=== PATIENT | female | born 1980 | race Caucasian/White ===

== ENCOUNTER 2016-05-23 06:58 | Inpatient (IN) | payer BC ==
[2016-05-23] MEDS ORDERED: HYDROmorphone 1 MG/ML 1 ML SYRINGE IVP STA ×3 (07:37→11:34)
[2016-05-23] MEDS ORDERED: SODIUM CHLORIDE 0.9% 1,000 ML IV STA ×3 (07:38→14:13)
--- NOTE | 2016-05-23 07:41 | ED ---
Abdominal Pain HPI - General Chief Complaint: Abdominal Pain Stated Complaint: vomiting, blood in stool Time Seen by Provider: 05/23/16 07:10 Source: patient, RN notes reviewed Mode of arrival: ambulatory Limitations: no limitations - History of Present Illness Initial Comments: This 36-year-old female with a history of she had bleeding the past with a small bowel resection as well as an appendectomy also history of pancreatitis who states she had the onset after eating dinner last night of abdominal pain. She states she's had nausea vomiting 5 she's had abdominal pain feels similar to her IBS. She also states over she's had the urgent feeling of need to have a bowel movement but she had just small amounts last couple times she had dark red blood clots. While at rest the pain is not very severe but does come in waves. Initial exam she did not require any pain medication bed by the in the exam she was in severe pain. Her last muscle. Ended about a week ago. MD Complaint: abdominal pain - Related Data Home Medications Medication Instructions Recorded Confirmed Multivitamins, Thera [Multivitamin] 1 tab PO DAILY 05/23/16 05/23/16 Allergies Allergy/AdvReac Type Severity Reaction Status Date / Time Penicillins Allergy Rash/Hives Verified 05/23/16 08:23 Review of Systems ROS Statement: Those systems with pertinent positive or pertinent negative responses have been documented in the HPI. ROS Other: All systems not noted in ROS Statement are negative. 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, multiple right knee surgeries Past Anesthesia/Blood Transfusion Reactions: No Reported Reaction Past Psychological History: No Psychological Hx Reported Smoking Status: Never smoker Past Alcohol Use History: None Reported Past Drug Use History: None Reported - Past Family History Father Family Medical History: No Reported History General Exam - General Exam Comments Initial Comments: Is a well-developed well-nourished awake alert oriented x3 female Limitations: no limitations General appearance: alert, anxious Head exam: Present: atraumatic, normocephalic, normal inspection Eye exam: Present: normal appearance, PERRL, EOMI. Absent: scleral icterus, conjunctival injection, periorbital swelling ENT exam: Present: mucous membranes dry Neck exam: Present: normal inspection. Absent: tenderness, meningismus, lymphadenopathy Respiratory exam: Present: normal lung sounds bilaterally. Absent: respiratory distress, wheezes, rales, rhonchi, stridor Cardiovascular Exam: Present: regular rate, normal rhythm, normal heart sounds. Absent: systolic murmur, diastolic murmur, rubs, gallop, clicks GI/Abdominal exam: Present: soft, tenderness (Tender lower quadrant right and left palpation no guarding), hyperactive bowel sounds. Absent: distended, guarding, rebound, rigid Rectal exam: Present: normal inspection, heme (+) stool, other (Dark red bloody residue noted) Extremities exam: Present: normal inspection, full ROM, normal capillary refill. Absent: tenderness, pedal edema, joint swelling, calf tenderness Back exam: Present: normal inspection Neurological exam: Present: alert, oriented X3, CN II-XII intact Psychiatric exam: Present: normal affect, normal mood Skin exam: Present: warm, dry, intact, normal color. Absent: rash Course Vital Signs 05/23/16 05/23/16 05/23/16 07:06 09:01 12:07 Temperature 97.8 F 98.2 F Pulse Rate 77 54 L 94 Respiratory 18 17 16 Rate Blood Pressure 130/58 133/71 116/65 O2 Sat by Pulse 98 100 100 Oximetry 05/23/16 13:12 Temperature 98.0 F Pulse Rate 100 Respiratory 20 Rate Blood Pressure 112/61 O2 Sat by Pulse 100 Oximetry Medical Decision Making - Medical Decision Making I did discuss findings with the patient family patient does still have abdominal pain and some nausea she will be admitted I did discuss the case with the hospitalist. The patient is seen Dr. Gary Frazier before will be consulted. - Lab Data Result diagrams: 05/23/16 07:25 05/23/16 07:25 Lab Results 05/23/16 05/23/16 05/23/16 Range/Units 07:25 07:25 07:25 WBC 14.4 H (3.8-10.6) k/uL RBC 4.75 (3.80-5.40) m/uL Hgb 13.7 (11.4-16.0) gm/dL Hct 41.3 (34.0-46.0) % MCV 87.0 (80.0-100.0) fL MCH 29.0 (25.0-35.0) pg MCHC 33.3 (31.0-37.0) g/dL RDW 12.6 (11.5-15.5) % Plt Count 195 (150-450) k/uL Neutrophils % 84 % Lymphocytes % 8 % Monocytes % 6 % Eosinophils % 1 % Basophils % 0 % Neutrophils # 12.1 H (1.3-7.7) k/uL Lymphocytes # 1.1 (1.0-4.8) k/uL Monocytes # 0.9 (0-1.0) k/uL Eosinophils # 0.1 (0-0.7) k/uL Basophils # 0.0 (0-0.2) k/uL PT 10.9 (9.0-12.0) sec INR 1.1 (<1.1) APTT 24.6 (22.0-30.0) sec Sodium 141 (137-145) mmol/L Potassium 4.2 (3.5-5.1) mmol/L Chloride 104 (98-107) mmol/L Carbon Dioxide 26 (22-30) mmol/L Anion Gap 11 mmol/L BUN 13 (7-17) mg/dL Creatinine 0.61 (0.52-1.04) mg/dL Est GFR (MDRD) Af Amer >60 (>60 ml/min/1.73 sqM) Est GFR (MDRD) Non-Af >60 (>60 ml/min/1.73 sqM) Glucose 114 H (74-99) mg/dL Calcium 8.9 (8.4-10.2) mg/dL Magnesium 1.8 (1.6-2.3) mg/dL Total Bilirubin 1.0 (0.2-1.3) mg/dL AST 21 (14-36) U/L ALT 26 (9-52) U/L Alkaline Phosphatase 61 (38-126) U/L Total Protein 6.3 (6.3-8.2) g/dL Albumin 3.7 (3.5-5.0) g/dL Amylase 52 (30-110) U/L Lipase 49 (23-300) U/L Urine Color Urine Appearance (Clear) Urine pH (5.0-8.0) Ur Specific Ucon (1.001-1.035) Urine Protein (Negative) Urine Glucose (UA) (Negative) Urine Ketones (Negative) Urine Blood (Negative) Urine Nitrate (Negative) Urine Bilirubin (Negative) Urine Urobilinogen (<2.0) mg/dL Ur Leukocyte Esterase (Negative) Urine RBC (0-5) /hpf Urine WBC (0-5) /hpf Ur Squamous Epith Cells (0-4) /hpf Urine Mucus (None) /hpf Urine HCG, Qual (Not Detectd) Stool Occult Blood (Negative) Blood Type Blood Type Recheck Antibody Screen Spec Expiration Date 05/23/16 05/23/16 05/23/16 Range/Units 07:25 08:00 08:30 WBC (3.8-10.6) k/uL RBC (3.80-5.40) m/uL Hgb (11.4-16.0) gm/dL Hct (34.0-46.0) % MCV (80.0-100.0) fL MCH (25.0-35.0) pg MCHC (31.0-37.0) g/dL RDW (11.5-15.5) % Plt Count (150-450) k/uL Neutrophils % % Lymphocytes % % Monocytes % % Eosinophils % % Basophils % % Neutrophils # (1.3-7.7) k/uL Lymphocytes # (1.0-4.8) k/uL Monocytes # (0-1.0) k/uL Eosinophils # (0-0.7) k/uL Basophils # (0-0.2) k/uL PT (9.0-12.0) sec INR (<1.1) APTT (22.0-30.0) sec Sodium (137-145) mmol/L Potassium (3.5-5.1) mmol/L Chloride (98-107) mmol/L Carbon Dioxide (22-30) mmol/L Anion Gap mmol/L BUN (7-17) mg/dL Creatinine (0.52-1.04) mg/dL Est GFR (MDRD) Af Amer (>60 ml/min/1.73 sqM) Est GFR (MDRD) Non-Af (>60 ml/min/1.73 sqM) Glucose (74-99) mg/dL Calcium (8.4-10.2) mg/dL Magnesium (1.6-2.3) mg/dL Total Bilirubin (0.2-1.3) mg/dL AST (14-36) U/L ALT (9-52) U/L Alkaline Phosphatase (38-126) U/L Total Protein (6.3-8.2) g/dL Albumin (3.5-5.0) g/dL Amylase (30-110) U/L Lipase (23-300) U/L Urine Color Urine Appearance (Clear) Urine pH (5.0-8.0) Ur Specific Ucon (1.001-1.035) Urine Protein (Negative) Urine Glucose (UA) (Negative) Urine Ketones (Negative) Urine Blood (Negative) Urine Nitrate (Negative) Urine Bilirubin (Negative) Urine Urobilinogen (<2.0) mg/dL Ur Leukocyte Esterase (Negative) Urine RBC (0-5) /hpf Urine WBC (0-5) /hpf Ur Squamous Epith Cells (0-4) /hpf Urine Mucus (None) /hpf Urine HCG, Qual Not Detected (Not Detectd) Stool Occult Blood Positive H (Negative) Blood Type O Negative Blood Type Recheck No Antibody Screen NEGATIVE Spec Expiration Date 05/26/2016 - 229905/23/16 Range/Units 08:30 WBC (3.8-10.6) k/uL RBC (3.80-5.40) m/uL Hgb (11.4-16.0) gm/dL Hct (34.0-46.0) % MCV (80.0-100.0) fL MCH (25.0-35.0) pg MCHC (31.0-37.0) g/dL RDW (11.5-15.5) % Plt Count (150-450) k/uL Neutrophils % % Lymphocytes % % Monocytes % % Eosinophils % % Basophils % % Neutrophils # (1.3-7.7) k/uL Lymphocytes # (1.0-4.8) k/uL Monocytes # (0-1.0) k/uL Eosinophils # (0-0.7) k/uL Basophils # (0-0.2) k/uL PT (9.0-12.0) sec INR (<1.1) APTT (22.0-30.0) sec Sodium (137-145) mmol/L Potassium (3.5-5.1) mmol/L Chloride (98-107) mmol/L Carbon Dioxide (22-30) mmol/L Anion Gap mmol/L BUN (7-17) mg/dL Creatinine (0.52-1.04) mg/dL Est GFR (MDRD) Af Amer (>60 ml/min/1.73 sqM) Est GFR (MDRD) Non-Af (>60 ml/min/1.73 sqM) Glucose (74-99) mg/dL Calcium (8.4-10.2) mg/dL Magnesium (1.6-2.3) mg/dL Total Bilirubin (0.2-1.3) mg/dL AST (14-36) U/L ALT (9-52) U/L Alkaline Phosphatase (38-126) U/L Total Protein (6.3-8.2) g/dL Albumin (3.5-5.0) g/dL Amylase (30-110) U/L Lipase (23-300) U/L Urine Color Yellow Urine Appearance Clear (Clear) Urine pH 6.0 (5.0-8.0) Ur Specific Ucon 1.013 (1.001-1.035) Urine Protein Negative (Negative) Urine Glucose (UA) Negative (Negative) Urine Ketones 2+ H (Negative) Urine Blood Negative (Negative) Urine Nitrate Negative (Negative) Urine Bilirubin Negative (Negative) Urine Urobilinogen <2.0 (<2.0) mg/dL Ur Leukocyte Esterase Trace H (Negative) Urine RBC 2 (0-5) /hpf Urine WBC 2 (0-5) /hpf Ur Squamous Epith Cells 1 (0-4) /hpf Urine Mucus Rare H (None) /hpf Urine HCG, Qual (Not Detectd) Stool Occult Blood (Negative) Blood Type Blood Type Recheck Antibody Screen Spec Expiration Date - Radiology Data Radiology results: report reviewed (I did review the imaging reports patient does have evidence of colitis.), image reviewed Disposition Clinical Impression: Colitis, acute, Abdominal pain, Rectal bleeding Disposition: ADMITTED IP TO THIS [facility] Condition: Stable
[2016-05-23] MEDS: ONDANSETRON 4 MG/2 ML VIAL IVP STA ×2 (07:44→11:12)
[2016-05-23 07:47] LABS: Basophils % (A) 0 %; CH 29.2; CHCM 33.7; Eosinophils # (A) 0.1 k/uL (0-0.7); Eosinophils % (A) 1 %; HCT 41.3 % (34.0-46.0); HDW 2.19; HGB 13.7 gm/dL (11.4-16.0); Luc # (Auto) 0.13; Luc % (Auto) 1; Lymphocytes # (A) 1.1 k/uL (1.0-4.8); Lymphocytes % (A) 8 %; MCHC 33.3 g/dL (31.0-37.0); Mean Platelet Volume 8.5; Monocytes # (A) 0.9 k/uL (0-1.0); Monocytes % (A) 6 %; Neutrophils # (A) 12.1 k/uL (1.3-7.7); Neutrophils % (A) 84 %; RBC 4.75 m/uL (3.80-5.40); RDW 12.6 % (11.5-15.5); WBC 14.4 k/uL (3.8-10.6); WBC (Perox) 14.52
[2016-05-23 07:54] LABS: INR 1.1 (<1.1); Partial Thromboplastin Time 24.6 sec (22.0-30.0); Prothrombin Time 10.9 sec (9.0-12.0)
[2016-05-23 08:01] LABS: ALT 26 U/L (9-52); AST 21 U/L (14-36); Alkaline Phosphatase 61 U/L (38-126); Amylase 52 U/L (30-110); Anion Gap 11 mmol/L; Blood Urea Nitrogen 13 mg/dL (7-17); Calcium 8.9 mg/dL (8.4-10.2); Carbon Dioxide 26 mmol/L (22-30); Chloride 104 mmol/L (98-107); Glucose 114 mg/dL (74-99); Magnesium 1.8 mg/dL (1.6-2.3); Non-African American GFR(MDRD) >60 (>60 ml/min/1.73 sqM); Potassium 4.2 mmol/L (3.5-5.1); Sodium 141 mmol/L (137-145); Total Protein 6.3 g/dL (6.3-8.2)
[2016-05-23 08:42] LABS: Appearance,Urine Clear (Clear); Bilirubin,Urine Negative (Negative); Glucose,Urine (UA) Negative (Negative); Ketones,Urine 2+ (Negative); Leukocyte Esterase,Urine Trace (Negative); Mucus,Urine Rare /hpf; Nitrite,Urine Negative (Negative); Particle Count 1926; Protein,Urine Negative (Negative); RBC,Urine 2 /hpf (0-5); Specific Gravity,Urine 1.013 (1.001-1.035); Squamous Epithelial Cell,Urine 1 /hpf (0-4); UA Billing (MACRO vs. MICRO) MICRO; Urobilinogen,Urine <2.0 mg/dL (<2.0); WBC,Urine 2 /hpf (0-5)
--- NOTE | 2016-05-23 08:58 | XR ---
EXAMINATION TYPE: XR KUB DATE OF EXAM: 05/23/2016 8:52 AM COMPARISON: NONE INDICATION: Abdominal pain nausea and vomiting TECHNIQUE: Single view abdomen upright view FINDINGS: There is a normal bowel gas pattern. Psoas margins are normal. No organomegaly is present. IMPRESSION: 1. Unremarkable Abdomen
[2016-05-23] MEDS ORDERED: RX INFO: IV CONTRAST WAS GIVEN 1 EACH MISC MISCELLANE PRN (09:08)
[2016-05-23] MEDS ORDERED: IOHEXOL 350 MG/ML 25 ML BOTTLE (ORAL USE) PO PRN (09:08)
--- NOTE | 2016-05-23 12:26 | CT ---
EXAMINATION TYPE: CT abdomen pelvis w con DATE OF EXAM: 05/23/2016 12:14 PM REFERENCE: Previous study dated 12/23/2011. HISTORY: Pain HISTORY: Pelvic pain and bloody stools CT DLP: 1579.6 mGy Automated exposure control for dose reduction was used. TECHNIQUE: Helical acquisition through the abdomen and pelvis was obtained following the oral ingesti on of with Oral Contrast and following intravenous administration of 100 mL of Omnipaque 300. The pawel a was reformatted in axial, coronal and sagittal projections. FINDINGS: There is minimal dependent atelectasis within the lungs. There is no pleural or pericardia l fluid. The heart is normal in size. There is a tiny hiatal hernia present. Within the abdomen, the liver is prominent measuring 19 cm. Most of this is due to a prominent Parisa 's lobe. The spleen and gallbladder are normal. Both adrenal glands are normal. Both kidneys demonstrate function and appear morphologically normal. The pancreas is unremarkable. There is no significant retroperitoneal, iliac or inguinal adenopathy. The uterus and ovaries appear normal. The bladder is distended. There is mucosal thickening involving the descending colon. The appendix is not visualized with certa inty. Small bowel loops are normal. No free fluid and no free air is seen. No osseous lesion is seen. IMPRESSION: 1. THICKENING OF THE DESCENDING COLON. PLEASE CORRELATE FOR COLITIS. 2. SMALL HIATAL HERNIA.
[2016-05-23] MEDS ORDERED: NALOXONE 0.4 MG/ML 1 ML VIAL IV PRN (14:01)
[2016-05-23] MEDS ORDERED: ONDANSETRON 4 MG/2 ML VIAL IVP PRN ×2 (14:01→17:38)
[2016-05-23] MEDS: HYDROmorphone 1 MG/ML 1 ML SYRINGE IV PRN (15:14)
[2016-05-23] MEDS: SODIUM CHLORIDE 0.9% 1,000 ML IV SCH ×2 (15:18→22:49)
--- NOTE | 2016-05-23 17:53 | P.GSCN ---
History of Present Illness Consult date: 05/23/16 Reason for Consult: Abdominal pain and rectal bleeding Requesting physician: [place] History of present illness: 36 years old female presents with diffuse crampy lower abdominal pain of one- day duration. Pain started after her dinner last night. She had a bloody bowel movement containing dark blood and blood clots. She had 2 further bowel movements this morning containing blood clots. Abdominal pain is subsiding. She also had multiple episodes of nausea and vomiting containing food particles. No fever, chills or rigors. History of irritable bowel syndrome. Patient also had small bowel resection in [address] Gary Frazier. This was an emergency surgery and as per patient" had abnormal blood vessel in the small bowel". She also had follow-up colonoscopy [place] [address] Adrian. No further episodes of GI bleed in the interim. She also had an episode of pancreatitis in the past. She drinks alcohol on social occasions. Review of Systems Constitutional: Denies fever, weight loss or loss of appetite HEENT: No difficulty in vision or hearing. Denies dysphagia. Cardiovascular: Denies chest pain, palpitations, dizziness, shortness of breath. Respiratory: Recent upper respiratory tract infection with dry cough. Long- standing asthma well controlled with rescue inhalers. Integumentary: No ulcers or rashes Genitourinary: No urinary incontinence, hematuria or dysuria Neurologic: No seizures, denies weakness in upper or lower extremities Musculoskeletal: Occasional left knee pain. 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, multiple right knee surgeries Past Anesthesia/Blood Transfusion Reactions: Postoperative Nausea & Vomiting ( PONV) Additional Past Anesthesia/Blood Transfusion Reaction / Comm: PAST BLOOD TRANSFUSION- NO REACTION Past Psychological History: No Psychological Hx Reported Smoking Status: Never smoker Past Alcohol Use History: Occasional Past Drug Use History: None Reported - Past Family History Mother Family Medical History: No Reported History Additional Family Medical History / Comment(s): HEALTHY Father Family Medical History: No Reported History Additional Family Medical History / Comment(s): HEALTHY Medications and Allergies Home Medications Medication Instructions Recorded Confirmed Type Multivitamins, Thera [Multivitamin] 1 tab PO DAILY 05/23/16 05/23/16 History Allergies Allergy/AdvReac Type Severity Reaction Status Date / Time Penicillins Allergy Rash/Hives Verified 05/23/16 08:23 Surgical - Exam Vital Signs Temp Pulse Resp BP Pulse Ox 97.8 F 77 18 130/58 98 05/23/16 07:06 05/23/16 07:06 05/23/16 07:06 05/23/16 07:06 05/23/16 07:06 General: Patient is alert and oriented to time, place and person and cooperative with exam. HEENT: No pallor, no icteru Chest: Bilateral equal breath sounds present. No wheezes, no crackles. Cardiovascular: Regular rate and rhythm. Abdomen: Soft, nontender, nondistended. No peritonitis Integumentary: No active ulcers or discharge. Neurologic: Cranial nerves II-XII intact. Strength upper and lower extremities 5/5. No focal neurologic deficits. Gait is normal. Psychiatric: No anxiety or psychosis. No suicidal thoughts. Results - Labs 05/23/16 07:25 05/23/16 07:25 - Imaging CT scan - abdomen: image reviewed (CT of the abdomen and pelvis reviewed. No contrast in the descending and sigmoid colon making visualization of the wall difficulty. No surrounding fat stranding. No free intra-abdominal air) Assessment and Plan (1) Abdominal pain Status: Acute (2) Rectal bleeding Status: Acute Plan: 1. 36 years old female with acute onset of abdominal pain, vomiting and bloody bowel movements. 2. Leukocytosis at presentation. Hemoglobin normal. Recheck hemoglobin and lactate level stat. Repeat in a.m. 3. Unclear about the source of bleeding at this time. Differential diagnosis included infectious colitis, bleeding from AV malformation, inflammatory bowel disease. 4. Keep nothing by mouth except for ice chips and popsicles. IV hydration. 5. Recommend GI consult 6. If acute drop in hemoglobin, recommend CT angiogram or regular angiogram with possible angioembolization. 7. Patient examined. 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
[2016-05-23] MEDS: METOCLOPRAMIDE 5 MG/ML 2 ML VIAL IVP SCH (18:14)
--- NOTE | 2016-05-23 18:38 | HP ---
DATE OF ADMISSION: 05/23/2016 Patient is a 36-year-old female, very pleasant female who started having multiple episodes of diarrhea yesterday and she had 3 episodes of blood in the stools and patient had similar blood in the stools in the past. 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 Byrnes did a small part of the small bowel resection. Patient denied any fevers. Patient was vomiting as well. Patient had a bit of flulike symptoms as well. Patient's son did have similar symptoms of nausea and vomiting about a few days ago. Patient denied any fever, chills. Patient had 3 stools today morning. Stool studies were ordered from ER. CT of the abdomen was read as colitis in the descending colon, although Dr. Byrnes reviewed the CT and the colitis was not that impressive. As of now, patient will be on IV fluids. We will watch her for more gastrointestinal bleed or any more diarrhea. REVIEW OF SYSTEMS: CONSTITUTIONAL: No fever, no malaise, no fatigue. HEENT: No recent visual problems or hearing problems. Denied any sore throat. CARDIOVASCULAR: No chest pain, orthopnea, PND, no palpitations, no syncope. PULMONARY: No shortness of breath, no cough, no hemoptysis. GASTROINTESTINAL: As described in HPI. Patient had lower crampy abdominal pain as well about 6/10 in severity, which improved at this point of time. NEUROLOGICAL: No headaches, no weakness, no numbness. HEMATOLOGICAL: Denies any bleeding or petechiae. GENITOURINARY: Denies any burning micturition, frequency, or urgency. MUSCULOSKELETAL/RHEUMATOLOGICAL: Denies any joint pain, swelling, or any muscle pain. ENDOCRINE: Denies any polyuria or polydipsia. The rest of the 14 point review of systems is negative. Medications were reviewed. PHYSICAL EXAMINATION: VITAL SIGNS: Temperature 97.9, Pulse of 57, respiratory rate of 16, blood pressure is 119/60, saturating at 98% on room air. GENERAL: The patient is alert and oriented x3, not in any acute distress. Well developed, well nourished. HEENT: Pupils are round and equally reacting to light. EOMI. No scleral icterus. No conjunctival pallor. Normocephalic, atraumatic. No pharyngeal erythema. No thyromegaly. CARDIOVASCULAR: S1 and S2 present. No murmurs, rubs, or gallops. PULMONARY: Chest is clear to auscultation, no wheezing or crackles. ABDOMEN: Very minimal left lower quadrant tenderness was appreciated. No rebound or rigidity. Bowel sounds are present. MUSCULOSKELETAL: No joint swelling or deformity. EXTREMITIES: No cyanosis, clubbing, or pedal edema. NEUROLOGICAL: Gross neurological examination did not reveal any focal deficits. SKIN: No rashes. LABORATORY DATA: CBC and abnormal for elevated WBC count of 114,000. ASSESSMENT AND PLAN: 1. Diarrhea appears to have viral diarrhea except for gastrointestinal bleed, which I cannot explain. We will monitor her today. If continues to have gastrointestinal bleed, patient will need a CT angiography of the abdomen as per the recommendations from as Dr. Giron to rule out any ischemic causes. 2. Leukocytosis as a reactive response to diarrhea, most probably viral diarrhea. The patient denied using any antibiotics recently. Primary care physician is Dr. Melanie Kaur.
[2016-05-23 19:13] LABS: Basophils # (A) 0.1 k/uL (0-0.2); Basophils % (A) 1 %; CH 29.3; CHCM 32.4; Eosinophils # (A) 0.1 k/uL (0-0.7); Eosinophils % (A) 1 %; HCT 38.7 % (34.0-46.0); HGB 12.1 gm/dL (11.4-16.0); Luc # (Auto) 0.17; Luc % (Auto) 2; Lymphocytes # (A) 1.6 k/uL (1.0-4.8); Lymphocytes % (A) 13 %; MCH 28.4 pg (25.0-35.0); MCHC 31.3 g/dL (31.0-37.0); MCV 90.8 fL (80.0-100.0); Mean Platelet Volume 8.8; Monocytes # (A) 0.7 k/uL (0-1.0); Monocytes % (A) 6 %; Neutrophils # (A) 9.1 k/uL (1.3-7.7); Neutrophils % (A) 78 %; RBC 4.26 m/uL (3.80-5.40); RDW 12.7 % (11.5-15.5); WBC 11.7 k/uL (3.8-10.6); WBC (Perox) 11.43
[2016-05-23 20:05] LABS: Erythrocyte Sedimentation Rate 2 mm/hr (0-20)
[2016-05-23] MEDS: PANTOPRAZOLE 40 MG/10 ML VIAL IV SCH (21:49)
[2016-05-24] MEDS: METOCLOPRAMIDE 5 MG/ML 2 ML VIAL IVP SCH ×4 (00:28→18:29)
[2016-05-24 06:54] LABS: Basophils % (A) 0 %; CH 28.8; CHCM 32.2; Eosinophils % (A) 0 %; HCT 37.4 % (34.0-46.0); HDW 2.16; HGB 12.3 gm/dL (11.4-16.0); Luc % (Auto) 2; Lymphocytes # (A) 1.3 k/uL (1.0-4.8); Lymphocytes % (A) 13 %; MCH 29.7 pg (25.0-35.0); MCV 89.8 fL (80.0-100.0); Mean Platelet Volume 7.8; Monocytes # (A) 0.5 k/uL (0-1.0); Monocytes % (A) 5 %; Neutrophils # (A) 7.8 k/uL (1.3-7.7); Neutrophils % (A) 79 %; RBC 4.16 m/uL (3.80-5.40); RDW 12.7 % (11.5-15.5); WBC 9.8 k/uL (3.8-10.6); WBC (Perox) 10.33
[2016-05-24] MEDS: HYDROmorphone 1 MG/ML 1 ML SYRINGE IV PRN ×2 (07:39→13:43)
[2016-05-24 07:42] LABS: ALT 30 U/L (9-52); AST 13 U/L (14-36); Alkaline Phosphatase 49 U/L (38-126); Anion Gap 9 mmol/L; Blood Urea Nitrogen 6 mg/dL (7-17); Calcium 7.8 mg/dL (8.4-10.2); Carbon Dioxide 23 mmol/L (22-30); Chloride 108 mmol/L (98-107); Glucose 85 mg/dL (74-99); Non-African American GFR(MDRD) >60 (>60 ml/min/1.73 sqM); Potassium 3.9 mmol/L (3.5-5.1); Sodium 140 mmol/L (137-145); Total Bilirubin 0.7 mg/dL (0.2-1.3); Total Protein 5.3 g/dL (6.3-8.2)
[2016-05-24] MEDS: PANTOPRAZOLE 40 MG/10 ML VIAL IV SCH ×2 (09:07→21:09)
[2016-05-24] MEDS: SODIUM CHLORIDE 0.9% 1,000 ML IV SCH (09:35)
[2016-05-24] MEDS: LACTATED RINGERS 1,000 ML IV SCH ×2 (09:37→21:11)
--- NOTE | 2016-05-24 10:07 | P.PN ---
Subjective 36 years old female presents with diffuse crampy lower abdominal pain of one- day duration. She had a bloody bowel movement containing dark blood and blood clots. She had 2 further bowel movements this morning containing blood clots. Abdominal pain is subsiding. She also had multiple episodes of nausea and vomiting containing food particles. No fever, chills or rigors. History of irritable bowel syndrome. Patient also had small bowel resection in [address] Gary Frazier. This was an emergency surgery and as per patient" had abnormal blood vessel in the small bowel". She also had follow-up colonoscopy [place] [address] Adrian. No further episodes of GI bleed in the interim. She also had an episode of pancreatitis in the past. She drinks alcohol on social occasions. Patient reports no abdominal pain today. Small bowel movements having blood clots. Review of Systems Constitutional: Denies fever, weight loss or loss of appetite HEENT: No difficulty in vision or hearing. Denies dysphagia. Cardiovascular: Denies chest pain, palpitations, dizziness, shortness of breath. Respiratory: Recent upper respiratory tract infection with dry cough. Long- standing asthma well controlled with rescue inhalers. Integumentary: No ulcers or rashes Genitourinary: No urinary incontinence, hematuria or dysuria Neurologic: No seizures, denies weakness in upper or lower extremities Musculoskeletal: Occasional left knee pain. 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, multiple right knee surgeries Past Anesthesia/Blood Transfusion Reactions: Postoperative Nausea & Vomiting ( PONV) Additional Past Anesthesia/Blood Transfusion Reaction / Comm: PAST BLOOD TRANSFUSION- NO REACTION Past Psychological History: No Psychological Hx Reported Smoking Status: Never smoker Past Alcohol Use History: Occasional Past Drug Use History: None Reported - Past Family History Mother Family Medical History: No Reported History Additional Family Medical History / Comment(s): HEALTHY Father Family Medical History: No Reported History Additional Family Medical History / Comment(s): HEALTHY Medications and Allergies Home Medications Medication Instructions Recorded Confirmed Type Multivitamins, Thera [Multivitamin] 1 tab PO DAILY 05/23/16 05/23/16 History Allergies Allergy/AdvReac Type Severity Reaction Status Date / Time Penicillins Allergy Rash/Hives Verified 05/23/16 08:23 Objective - Vital Signs Vital signs: Vital Signs Temp 97.1 F L 05/24/16 07:00 Pulse 73 05/24/16 07:00 Resp 16 05/24/16 07:00 BP 137/64 05/24/16 07:00 Pulse Ox 99 05/24/16 07:00 Intake & Output 05/23/16 05/24/16 05/24/16 18:59 06:59 18:59 Intake Total 375 Balance 375 Intake: Intake, IV Titration 375 Amount Sodium Chloride 0.9% 1, 375 000 ml @ 125 mls/hr IV . Q8H [facility] Rx#:[id number] Oral 0 Other: Voiding Method Toilet # Voids 2 - Exam General: Patient is alert and oriented to time, place and person and cooperative with exam. HEENT: No pallor, no icteru Chest: Bilateral equal breath sounds present. No wheezes, no crackles. Cardiovascular: Regular rate and rhythm. Abdomen: Soft, nontender, nondistended. No peritonitis Integumentary: No active ulcers or discharge. Neurologic: Cranial nerves II-XII intact. Strength upper and lower extremities 5/5. No focal neurologic deficits. CT scan - abdomen: image reviewed (CT of the abdomen and pelvis reviewed. No contrast in the descending and sigmoid colon making visualization of the wall difficulty. No surrounding fat stranding. No free intra-abdominal air) - Labs CBC & Chem 7: 05/24/16 06:26 05/24/16 06:26 Labs: Abnormal Lab Results - Last 24 Hours (Table) 05/23/16 05/23/16 05/24/16 Range/Units 18:50 18:50 06:26 WBC 11.7 H (3.8-10.6) k/uL Neutrophils # 9.1 H 7.8 H (1.3-7.7) k/uL Chloride (98-107) mmol/L BUN (7-17) mg/dL Calcium (8.4-10.2) mg/dL AST (14-36) U/L C-Reactive Protein 32.2 H (<10.0) mg/L Total Protein (6.3-8.2) g/dL Albumin (3.5-5.0) g/dL 05/24/16 Range/Units 06:26 WBC (3.8-10.6) k/uL Neutrophils # (1.3-7.7) k/uL Chloride 108 H (98-107) mmol/L BUN 6 L (7-17) mg/dL Calcium 7.8 L (8.4-10.2) mg/dL AST 13 L (14-36) U/L C-Reactive Protein (<10.0) mg/L Total Protein 5.3 L (6.3-8.2) g/dL Albumin 2.8 L (3.5-5.0) g/dL Assessment and Plan (1) Abdominal pain Status: Acute (2) Rectal bleeding Status: Acute Plan: 1. 36 years old female with acute onset of abdominal pain, vomiting and bloody bowel movements. 2. Leukocytosis at presentation. Hemoglobin normal. Leucocytosis resolved. Hb normal. ESR - normal . CRP elevated 3. Unclear about the source of bleeding at this time. Differential diagnosis included infectious colitis, bleeding from AV malformation, inflammatory bowel disease. 4. Keep nothing by mouth except for ice chips and popsicles. IV hydration. 5. Recommend GI consult 6. If acute drop in hemoglobin, recommend CT angiogram or regular angiogram with possible angioembolization.
--- NOTE | 2016-05-24 12:57 | CONS ---
DATE OF CONSULTATION: 05/24/2016 REASON FOR CONSULTATION: Abdominal pain and acute bloody diarrhea. HISTORY OF PRESENT ILLNESS: The patient is a 36-year-old pleasant lady who was admitted to the hospital with acute onset of lower abdominal pain that started on night, which was 2 days ago. She had severe lower abdominal cramping pain to an extent that had 3 or 4 episodes of emesis. Following this, she had multiple episodes of maroon-colored stool with clots and she had at least 10 of these episodes all night on . Yesterday morning she woke up. She continued to have some clots. Became very concerned, she came into the emergency room and subsequently was admitted to the hospital for further evaluation. The patient never had similar symptoms in the past. She denies any fever, chills, night sweats. No recent antibiotic use. The patient states that she was admitted to the hospital in 2004 with acute GI bleed. She had a colonoscopy done by me and according to the patient showed small polyps. However subsequently she was diagnosed with bleeding from the small bowel and underwent a small bowel resection by Dr. Hamm and details are not available at the time of this dictation. She subsequently had done extremely well. Her past medical history is significant for IBS, one episode of pancreatitis 10 years ago. PAST SURGICAL HISTORY: Appendectomy, small bowel resection, finger surgery and knee surgery. MEDICATIONS AT HOME: Multivitamin. ALLERGIES: PENICILLIN. SOCIAL HISTORY: No smoking. No alcohol use. FAMILY HISTORY: Mother is healthy. Father is healthy. REVIEW OF SYSTEMS: CARDIOPULMONARY: No chest pain or shortness of breath. GENITOURINARY: No dysuria or hematuria. MUSCULOSKELETAL: Unremarkable. SKIN: Unremarkable. ENDOCRINE: Unremarkable. PSYCHIATRIC: Unremarkable. NEUROLOGY: Unremarkable. ENT/VISION: Unremarkable. CONSTITUTIONAL: No recent weight loss. No fever, chills or night sweats. On physical examination, she appears comfortable in no apparent distress. Vital signs are stable. Blood pressure 119/68, pulse rate 61, temperature 97.9. HEENT: Unremarkable. Conjunctivae pink. Sclerae anicteric. Oral cavity, no lesions. NECK: No JVD or lymph node enlargement. Chest was clear to auscultation. HEART: Regular rate and rhythm. ABDOMEN: Soft. Mild tenderness in the suprapubic area as well as left lower quadrant area. EXTREMITIES: No pedal edema. SKIN: No rashes. NEURO: Alert and oriented x3. No focal deficits. Labs done at the time of admission to the hospital: WBC 14.4, today it is 9.8, hemoglobin is 12.3, platelets are normal. Basic metabolic panel is within normal limits. CT of the abdomen showed thickening of the descending colon suspicious for acute colitis. IMPRESSION: This is a lady who presents with acute onset of lower abdominal pain followed by nausea, vomiting, and bloody diarrhea of 24 hours duration. The clinical picture is very consistent with infectious colitis versus ischemic colitis. CT of the abdomen did show thickening of the descending colon, which is consistent with acute colitis. Since being in the hospital symptoms are gradually improving though bleeding is gradually resolving and the pain is improving. No recent antibiotic history and no recent travel history. RECOMMENDATIONS: 1. Start her on clear liquid diet. 2. Stool studies for C. difficile toxin as well as bacterial cultures. 3. If her symptoms continue to improve in the next 24 to 48 hours, she can be discharged home with an outpatient follow up. However, if she continues to have ongoing bleeding, I will consider proceeding with a colonoscopy during this hospitalization. The plan was discussed with the patient. She is agreeable to it. Will follow her closely during her hospital stay. Thank you for this consultation.
--- NOTE | 2016-05-24 13:27 | PN ---
Patient is a 36-year-old admitted secondary to GI bleed and diarrhea and Gastroenterology evaluated the patient and consideration is ischemic colitis. Patient still had a couple episodes of blood in the stools. REVIEW OF SYSTEMS: CARDIOVASCULAR: No chest pain, no orthopnea, no PND, no palpitations. PULMONARY: Denied any shortness of breath. No cough or hemoptysis. GASTROINTESTINAL: As described in HPI. NEUROLOGIC: No headaches, no weakness, no numbness. Medications were reviewed. PHYSICAL EXAMINATION: VITAL SIGNS: Temperature 97.1, pulse of 73, respiratory rate of 16, blood pressure 137/64, saturating at 99% on room air. GENERAL: The patient is alert and oriented x3, not in any acute distress. Well developed, well nourished. HEENT: Pupils are round and equally reacting to light. EOMI. No scleral icterus. No conjunctival pallor. Normocephalic, atraumatic. No pharyngeal erythema. No thyromegaly. CARDIOVASCULAR: S1 and S2 present. No murmurs, rubs, or gallops. PULMONARY: Chest is clear to auscultation, no wheezing or crackles. ABDOMEN: Soft, nontender, nondistended, normoactive bowel sounds. No palpable organomegaly. MUSCULOSKELETAL: No joint swelling or deformity. EXTREMITIES: No cyanosis, clubbing, or pedal edema. NEUROLOGICAL: Gross neurological examination did not reveal any focal deficits. SKIN: No rashes. LABORATORY DATA: CBC, CMP are abnormal for mildly low hemoglobin of 12.3. Came down from 13.7. Patient has elevated chloride because of which I am changing her to lactated Ringer's. Patient's diet will be advanced. ASSESSMENT AND PLAN: 1. Diarrhea with lower gastrointestinal bleed possibility of ischemic colitis along with superimposed viral gastroenteritis. 2. Leukocytosis which is a reactive response. 3. Hyperchloremia due to IV fluids. PLAN: Clinically monitor. Continue with IV fluids. Clinically monitor for any more GI bleed. CBC and comprehensive metabolic profile tomorrow morning again. Awaiting clinical improvement.
[2016-05-25] MEDS: METOCLOPRAMIDE 5 MG/ML 2 ML VIAL IVP SCH ×5 (02:41→23:28)
[2016-05-25] MEDS: LACTATED RINGERS 1,000 ML IV SCH ×2 (06:11→16:29)
[2016-05-25 07:30] LABS: CH 28.9; CHCM 32.8; HCT 35.7 % (34.0-46.0); HDW 2.25; HGB 11.8 gm/dL (11.4-16.0); MCH 29.2 pg (25.0-35.0); MCHC 32.9 g/dL (31.0-37.0); MCV 88.6 fL (80.0-100.0); Mean Platelet Volume 7.8; RBC 4.03 m/uL (3.80-5.40); RDW 12.4 % (11.5-15.5)
[2016-05-25] MEDS: PANTOPRAZOLE 40 MG/10 ML VIAL IV SCH ×2 (07:45→20:19)
[2016-05-25] MEDS: HYDROmorphone 1 MG/ML 1 ML SYRINGE IV PRN (07:50)
[2016-05-25 08:02] LABS: ALT 29 U/L (9-52); AST 12 U/L (14-36); Alkaline Phosphatase 47 U/L (38-126); Anion Gap 8 mmol/L; Blood Urea Nitrogen 4 mg/dL (7-17); Calcium 8.2 mg/dL (8.4-10.2); Carbon Dioxide 26 mmol/L (22-30); Chloride 106 mmol/L (98-107); Glucose 78 mg/dL (74-99); Non-African American GFR(MDRD) >60 (>60 ml/min/1.73 sqM); Potassium 3.8 mmol/L (3.5-5.1); Sodium 140 mmol/L (137-145); Total Bilirubin 0.8 mg/dL (0.2-1.3); Total Protein 5.2 g/dL (6.3-8.2)
--- NOTE | 2016-05-25 11:37 | PN ---
DATE OF SERVICE: 05/25/2016 REQUESTING PHYSICIAN: Dr. North. The patient is a 36-year-old pleasant lady admitted to the hospital with acute onset of lower abdominal pain followed by nausea, vomiting, and bloody diarrhea of almost 24-hour period. She is doing much better today. The abdominal pain has significantly improved. Nausea and vomiting has resolved and she had only 3 bowel movements all day yesterday. The last one this morning had small amount of dark-colored stool. Overall she is feeling much better. On physical examination, she appears comfortable in no apparent distress. Vital signs are stable. Blood pressure is 118/60, pulse rate 67 and afebrile. Respirations 16. HEENT: Unremarkable. Conjunctivae pink. Sclerae anicteric. Oral cavity, no lesions. NECK: No JVD or lymph node enlargement. Chest was clear to auscultation. HEART: Regular rate and rhythm. ABDOMEN: Soft. Bowel sounds are positive. Mild tenderness in the left lower quadrant area. EXTREMITIES: No pedal edema. SKIN: No rashes. NEURO: Alert and oriented x3. No focal deficits. Labs from today: WBC 8, hemoglobin 11.8, platelets are normal. The rest of labs are within normal limits. Stool studies: C. difficile toxin was negative. IMPRESSION: This is a lady who presents with acute onset of lower abdominal pain followed by nausea, vomiting, and bloody diarrhea of 24 hours duration and the symptoms are significantly improved. CAT scan showed left-sided colitis. C. difficile toxin was negative. At this point most likely we are dealing with an infectious colitis versus ischemic colitis, which appears to be resolving. Her hemoglobin stable at 12 g/dL. RECOMMENDATIONS: 1. Will advance her diet as tolerated. 2. Repeat CBC in the morning. 3. If she is feeling well, she can be discharged home tomorrow with outpatient follow up in a week. At this time, no plans on proceeding with any endoscopic intervention. The plan was discussed with the patient. She is agreeable to it.
--- NOTE | 2016-05-25 14:02 | PN ---
This dictation is both DISCHARGE SUMMARY/PROGRESS NOTE: A 36-year-old admitted with diarrhea and also lower GI bleed, possibly ischemic colitis and patient has once again solid stool today. No blood in the stools. Hemoglobin remained fairly stable at 11.8. REVIEW OF SYSTEMS: GASTROINTESTINAL: As described in HPI. REVIEW OF SYSTEMS: CARDIOVASCULAR: No chest pain, no orthopnea, no PND, no palpitations. PULMONARY: Denied any shortness of breath. No cough or hemoptysis. NEUROLOGIC: No headaches, no weakness, no numbness. Medications were reviewed. PHYSICAL EXAMINATION: Temperature 98.2, pulse of 58, respiratory rate 16, blood pressure is 112/63, saturating at 98% on room air. GENERAL: The patient is alert and oriented x3, not in any acute distress. Well developed, well nourished. HEENT: Pupils are round and equally reacting to light. EOMI. No scleral icterus. No conjunctival pallor. Normocephalic, atraumatic. No pharyngeal erythema. No thyromegaly. CARDIOVASCULAR: S1 and S2 present. No murmurs, rubs, or gallops. PULMONARY: Chest is clear to auscultation, no wheezing or crackles. ABDOMEN: Soft, nontender, nondistended, normoactive bowel sounds. No palpable organomegaly. MUSCULOSKELETAL: No joint swelling or deformity. EXTREMITIES: No cyanosis, clubbing, or pedal edema. NEUROLOGICAL: Gross neurological examination did not reveal any focal deficits. SKIN: No rashes. LABORATORY DATA: Hemoglobin fairly stable at 11.8. Basic metabolic profile is essentially within normal limits. ASSESSMENT AND PLAN: 1. Diarrhea and gastrointestinal bleed probably is due to ischemic colitis with superimposed viral gastroenteritis. 2. Leukocytosis due to assessment #1. PLAN: Will continue to monitor today, advance the diet as tolerated, possibility of discharge tomorrow if she continues to have no blood in the stools. If patient is clinically doing well and wanted to be discharged today, patient will be discharged later in the day.
--- NOTE | 2016-05-25 14:47 | P.PN ---
Subjective 36 years old female presents with diffuse crampy lower abdominal pain of one- day duration. She had a bloody bowel movement containing dark blood and blood clots. She has still noticed some blood and clots in BMs overnight. Abdominal pain is subsiding. She also had multiple episodes of nausea and vomiting containing food particles. No fever, chills or rigors. History of irritable bowel syndrome. Patient also had small bowel resection in [address] Gary Frazier. This was an emergency surgery and as per patient" had abnormal blood vessel in the small bowel". She also had follow-up colonoscopy [place] [address] Adrian. No further episodes of GI bleed in the interim. She also had an episode of pancreatitis in the past. She drinks alcohol on social occasions. Patient reports no abdominal pain today. Small bowel movements having blood clots. Review of Systems Constitutional: Denies fever, weight loss or loss of appetite HEENT: No difficulty in vision or hearing. Denies dysphagia. Cardiovascular: Denies chest pain, palpitations, dizziness, shortness of breath. Respiratory: Recent upper respiratory tract infection with dry cough. Long- standing asthma well controlled with rescue inhalers. Integumentary: No ulcers or rashes Genitourinary: No urinary incontinence, hematuria or dysuria Neurologic: No seizures, denies weakness in upper or lower extremities Musculoskeletal: Occasional left knee pain. 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, multiple right knee surgeries Past Anesthesia/Blood Transfusion Reactions: Postoperative Nausea & Vomiting ( PONV) Additional Past Anesthesia/Blood Transfusion Reaction / Comm: PAST BLOOD TRANSFUSION- NO REACTION Past Psychological History: No Psychological Hx Reported Smoking Status: Never smoker Past Alcohol Use History: Occasional Past Drug Use History: None Reported - Past Family History Mother Family Medical History: No Reported History Additional Family Medical History / Comment(s): HEALTHY Father Family Medical History: No Reported History Additional Family Medical History / Comment(s): HEALTHY Medications and Allergies Home Medications Medication Instructions Recorded Confirmed Type Multivitamins, Thera [Multivitamin] 1 tab PO DAILY 05/23/16 05/23/16 History Allergies Allergy/AdvReac Type Severity Reaction Status Date / Time Penicillins Allergy Rash/Hives Verified 05/23/16 08:23 Objective - Vital Signs Vital signs: Vital Signs Temp 98.2 F 05/25/16 07:00 Pulse 58 L 05/25/16 07:00 Resp 16 05/25/16 07:00 BP 112/63 05/25/16 07:00 Pulse Ox 98 05/25/16 07:00 Intake & Output 05/24/16 05/25/16 05/25/16 18:59 06:59 18:59 Intake Total 590 1200 Output Total 1 Balance 590 1199 Intake: Intake, IV Titration 1100 Amount Lactated Ringers 1,000 ml 1100 @ 100 mls/hr IV .Q10H [facility] Rx#:[id number] Oral 590 100 Output: Urine 1 Other: Voiding Method Toilet Toilet Toilet # Voids 2 1 # Bowel Movements 1 - Exam General: Patient is alert and oriented to time, place and person and cooperative with exam. HEENT: No pallor, no icterus Chest: Bilateral equal breath sounds present. No wheezes, no crackles. Cardiovascular: Regular rate and rhythm. Abdomen: Soft, nontender, nondistended. No peritonitis Integumentary: No active ulcers or discharge. Neurologic: Cranial nerves II-XII intact. Strength upper and lower extremities 5/5. No focal neurologic deficits. CT scan - abdomen: image reviewed (CT of the abdomen and pelvis reviewed. No contrast in the descending and sigmoid colon making visualization of the wall difficulty. No surrounding fat stranding. No free intra-abdominal air) - Labs CBC & Chem 7: 05/25/16 07:01 05/25/16 07:01 Labs: Abnormal Lab Results - Last 24 Hours (Table) 05/25/16 Range/Units 07:01 BUN 4 L (7-17) mg/dL Calcium 8.2 L (8.4-10.2) mg/dL AST 12 L (14-36) U/L Total Protein 5.2 L (6.3-8.2) g/dL Albumin 2.8 L (3.5-5.0) g/dL Microbiology - Last 24 Hours (Table) 05/24/16 07:23 Stool for WBCs - Final Stool 05/24/16 07:23 Stool Culture - Preliminary Stool Assessment and Plan (1) Abdominal pain Status: Acute (2) Rectal bleeding Status: Acute Plan: 1. 36 years old female with acute onset of abdominal pain, vomiting and bloody bowel movements. 2. Leukocytosis at presentation. Hemoglobin normal. Leucocytosis resolved. ESR - normal . CRP elevated 3. Unclear about the source of bleeding at this time. Differential diagnosis included infectious colitis, bleeding from AV malformation, inflammatory bowel disease. 4. Soft diet 5. GI following. Outpatient colonoscopy as per GI 6. If acute drop in hemoglobin, recommend CT angiogram or regular angiogram with possible angioembolization.
[2016-05-26] MEDS: LACTATED RINGERS 1,000 ML IV SCH (02:01)
[2016-05-26] MEDS: METOCLOPRAMIDE 5 MG/ML 2 ML VIAL IVP SCH (05:19)
[2016-05-26 07:49] VITALS: BP 122/68; PULSE 52; RESP 15; TEMP 97.9
[2016-05-26] MEDS: PANTOPRAZOLE 40 MG/10 ML VIAL IV SCH (08:23)
--- NOTE | 2016-05-26 15:52 | P.DS ---
Providers Date of admission: 05/23/16 14:04 Expected date of discharge: 05/26/16 Attending physician: Dayton North Consults: 05/24/16 09:15 Consult Physician Routine Consulting Provider: Modesta Adrian Consult Reason/Comments: GI bleed Do you want consulting provider notified?: Yes Dr. Giron, General Surgery Primary care physician: Alberto Kaur [facility] Course: Final diagnoses: 1. Acute abdominal pain, Diarrhea and GI bleed probably secondary to ischemic colitis with superimposed final gastroenteritis 2. Leukocytosis secondary to #1, resolved. ESR normal Hospital course: This a 36-year-old female admitted with diarrhea and lower GI bleed, and she related to ischemic colitis. CT of abdomen and pelvis reported thickening of the descending colon, small hiatal hernia. Tested negative for C. difficile. Evaluated by GI and surgery. Significant clinical improvement. Diet advanced .Diarrhea with maroon clots nearly subsided, Recent hemoglobin 11.8. Minimal right lower quadrant pain radiating to left lower quadrant after consumption of diet. Cleared by both surgery and GI for discharge. Patient is being discharged home in a stable condition with guarded prognosis. Microbiology 05/24/16 07:23 Stool Stool Culture - Preliminary 05/24/16 07:23 Stool Stool for WBCs - Final Patient Condition at Discharge: Stable Plan - Discharge Summary New Discharge Prescriptions: Pantoprazole Sodium [Protonix] 40 mg PO DAILY #30 tablet. Discharge Medication List Multivitamins, Thera [Multivitamin] 1 tab PO DAILY 05/23/16 [History] Pantoprazole Sodium [Protonix] 40 mg PO DAILY #30 tablet. 05/26/16 [Rx] Follow up Appointment(s)/Referral(s): Alberto Kaur III, MD [Primary Care Provider] - 3 Days Ambulatory/Diagnostic Orders: Complete Blood Count w/diff [LAB.AMB] Time Frame: 3 Days, Location: Determined By Patient Activity/Diet/Wound Care/Special Instructions: patient to go home on a soft diet, follow up with Dr. Adrian in one to two weeks in her office. Patient can return to work Thursday June 02, 2016 Care Plan Goals (MU): soft diet Discharge Disposition: HOME SELF-CARE
--- NOTE | 2016-05-26 17:19 | PN ---
DATE OF DICTATION: 05/26/2016 Patient is a 36-year-old pleasant lady admitted to the hospital with acute onset of lower abdominal pain associated with nausea, vomiting and bloody diarrhea of 24 hours' duration. Since being in the hospital she has been doing extremely well. Her bleeding has stopped. Abdominal pain has significantly improved. She is on a soft diet, tolerating well. On physical examination, the patient is comfortable, in no apparent distress. VITAL SIGNS: Blood pressure 119/69, pulse rate 58, temperature 98. HEENT EXAMINATION: Unremarkable. Conjunctivae are pink, sclerae anicteric. Oral cavity has no lesions. NECK: No JVD or lymph node enlargement. Chest was clear to auscultation. HEART: Regular rate and rhythm. ABDOMEN: Soft. Bowel sounds are positive. No organomegaly. EXTREMITIES: No pedal edema. SKIN: No rashes. NEURO: Alert and oriented x2. No focal deficits. Labs done today: WBC 8, hemoglobin 11.8. Platelets are normal. IMPRESSION: Acute bloody diarrhea associated with abdominal pain of 2 days' duration. Most likely we are dealing with an infectious etiology versus ischemic colitis. Symptoms at present have resolved. Stool studies so far have been negative. Cultures are still pending. RECOMMENDATIONS: Patient can be discharged home today with outpatient followup in 1 to 2 weeks. In the meantime, I suggested that she can be on a soft diet. Thank you for this consultation.
== END 2016-05-26 12:35 | disposition home or self-care (01) | DRG 392 ==
LOC: EC 06:58 → OBSVTOIN 14:04 → 5MS5E 14:04 → INTOOBSV 14:04
PROVIDERS: ADMIT Internal Medicine; ATTEND Internal Medicine
DX: A08.4 Viral intestinal infection, unspecified (principal); K55.9 Vascular disorder of intestine, unspecified; E87.8 Other disorders of electrolyte and fluid balance, not elsewhere classified; K44.9 Diaphragmatic hernia without obstruction or gangrene; K58.9 Irritable bowel syndrome, unspecified; Z79.899 Other long term (current) drug therapy; Z90.49 Acquired absence of other specified parts of digestive tract
CPT/HCPCS: 36415; 74000; 74177; 80053; 80299; 81001; 81025; 82150; 82272; 83605; 83690; 83735; 85025; 85027; 85610; 85652; 85730; 86140; 86850; 86900; 86901; 87045; 87046; 87324; 87328; 87329; 89055; 96361; 96374; 96375; 96376; 99285

== ENCOUNTER → 2022-04-02 | Outpatient (CLI) | payer BC ==
--- NOTE | 2022-04-02 18:22 | MM ---
Reason for Exam: Screening (asymptomatic). Baseline mammogram. Patient History: Menarche at age 12. First Full-Term at age 30. Paternal aunt had breast cancer. Last menstrual period: 03/19/2022 Risk Values: Shelbie 5 year model risk: 0.7%. NCI Lifetime model risk: 12.1%. Prior Study Comparison: Patient's first Mammogram. Tissue Density: The breast tissue is heterogeneously dense. This may lower the sensitivity of mammography. Findings: Analyzed By CAD. Pattern appears symmetrical. No suspicious groups of microcalcifications, spiculated or lobular masses, architectural distortion or other secondary signs of malignancy are mammographically apparent. Overall Assessment: Benign, BI-RAD 2 Management: Screening Mammogram of both breasts in 1 year. A negative mammogram report should not preclude additional follow up of suspicious palpable abnormalities. Patient should continue monthly self breast exam. A clinical breast exam by your physician is recommended on an annual basis and results should be correlated with mammographic findings. Electronically signed and approved by: Сергей Miguel D.O. Radiologis
== END | disposition home or self-care (01) ==
LOC: RADMAMWWP 07:11
PROVIDERS: ATTEND Obstetrics & Gynecology
DX: Z12.31 Encounter for screening mammogram for malignant neoplasm of breast (principal); Z80.3 Family history of malignant neoplasm of breast
CPT/HCPCS: 77063; 77067

== ENCOUNTER → 2023-05-04 | Outpatient (CLI) | payer BC ==
--- NOTE | 2023-05-05 16:04 | MM ---
Reason for Exam: Screening (asymptomatic). Last mammogram was performed 1 year(s) and 1 month(s) ago. Patient History: Menarche at age 12. First Full-Term at age 30. Premenopausal. Paternal aunt had breast cancer, age 60. Risk Values: Shelbie 5 year model risk: 0.8%. NCI Lifetime model risk: 11.9%. Prior Study Comparison: 04/02/2022 Bilateral MG 3D screening mammo w/cad, [facility]. Tissue Density: There are scattered fibroglandular densities. Findings: Analyzed By CAD. Microclip right breast from prior biopsy. On the right, new small grouped calcifications anterior upper outer quadrant for which further magnification views are recommended. On the left, chronic central nodularity is unchanged. Overall Assessment: Incomplete: need additional imaging evaluation, BI-RAD 0 Management: Special View Mammogram of the right breast. . [facility] will attempt to contact patient to return for supplemental views and ultrasound if indicated. Electronically signed and approved by: Sarah Singh M.D. Radiologist
== END | disposition home or self-care (01) ==
LOC: RADMAMWWP 10:33
PROVIDERS: ATTEND Obstetrics & Gynecology
DX: Z12.31 Encounter for screening mammogram for malignant neoplasm of breast (principal); Z80.3 Family history of malignant neoplasm of breast
CPT/HCPCS: 77067

== ENCOUNTER → 2023-05-11 | Outpatient (CLI) | payer BC ==
--- NOTE | 2023-05-11 15:13 | MM ---
Reason for Exam: Additional evaluation requested from prior study. Last screening mammogram was performed less than 1 month ago. Patient History: Menarche at age 12. First Full-Term at age 30. Premenopausal. Paternal aunt had breast cancer, age 60. Risk Values: Shelbie 5 year model risk: 0.8%. NCI Lifetime model risk: 11.9%. Prior Study Comparison: 04/02/2022 Bilateral MG 3D screening mammo w/cad, [facility]. 05/04/2023 Bilateral MG screening mammo w CAD, [facility]. Tissue Density: Left: The breast tissue is heterogeneously dense. This may lower the sensitivity of mammography. Findings: Analyzed By CAD. Additional views of the left breast fail to demonstrate evidence for a persistent asymmetric density left breast. Overall Assessment: Negative, BI-RAD 1 Management: Screening Mammogram of both breasts in 1 year. . Results were given to the patient verbally at the time of exam. Patient should continue monthly self-breast exams. A clinical breast exam by your physician is recommended on an annual basis. This exam should not preclude additional follow-up of suspicious palpable abnormalities. Note on Shelbie scores and lifetime risk: 1. A Shelbie score greater than 3% is considered moderate risk. If this is the case, consider specialist referral to assess eligibility for a risk reducing agent. 2. If overall lifetime risk for the development of breast cancer is 20% or higher, the patient may qualify for future screening with alternating mammogram and breast MRI. Electronically signed and approved by: Osvaldo Pompa M.D. Radiologis
== END | disposition home or self-care (01) ==
LOC: RADMAMWWP 14:37
PROVIDERS: ATTEND Obstetrics & Gynecology
DX: R92.332 Mammographic heterogeneous density, left breast (principal); Z80.3 Family history of malignant neoplasm of breast
CPT/HCPCS: 77061; 77065

== ENCOUNTER 2024-03-15 11:57 | Emergency (ER) | payer BC ==
[2024-03-15 12:07] VITALS: RESP 18
--- NOTE | 2024-03-15 12:38 | ED ---
Female Urogenital HPI - General Chief complaint: Vaginal Bleeding Stated complaint: vaginal bleeding/clotting Time Seen by Provider: 03/15/24 12:35 Source: patient, RN notes reviewed Mode of arrival: ambulatory Limitations: no limitations - History of Present Illness Initial comments: 43-year-old female presenting to the ER with a chief complaint of vaginal bleeding. Patient states her last menstrual cycle started on 03-06-2024. She states this was normal flow and duration. She stated about 3 days ago she started to pass blood clots. She states she will pass a blood clot then liquid blood. Bleeding will then subside in approximately 45 minutes to 1 hour later she will have another episode of passing a clot and then liquid blood. She denies blood thinner use. Patient also was endorsing right lower quadrant abdominal pain. She denies a history of ovarian cyst, fibroids or endometriosis. She does follow-up with . Patient states when she was approximately 24 years old she had a bowel resection due to a bleeding blood vessel. She did require 16 units of blood at that time. She denies any constipation, diarrhea, urinary complaints, fevers, chills, nausea or vomiting. - Related Data Home Medications Medication Instructions Recorded Confirmed Multivitamins, Thera [Multivitamin 1 tab PO DAILY 05/23/16 05/23/16 (formulary)] Previous Rx's Medication Instructions Recorded Pantoprazole Sodium [Protonix] 40 mg PO DAILY #30 tablet. 05/26/16 Allergies Allergy/AdvReac Type Severity Reaction Status Date / Time Penicillins Allergy Rash/Hives Verified 05/23/16 08:23 Review of Systems ROS Statement: Those systems with pertinent positive or pertinent negative responses have been documented in the HPI. ROS Other: All systems not noted in ROS Statement are negative. 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, multiple right knee surgeries Past Anesthesia/Blood Transfusion Reactions: Postoperative Nausea & Vomiting (PONV) Additional Past Anesthesia/Blood Transfusion Reaction / Comment(s): PAST BLOOD TRANSFUSION- NO REACTION Past Psychological History: No Psychological Hx Reported Smoking Status: Never smoker Past Alcohol Use History: Occasional Past Drug Use History: None Reported - Past Family History Mother Family Medical History: No Reported History Additional Family Medical History / Comment(s): HEALTHY Father Family Medical History: No Reported History Additional Family Medical History / Comment(s): HEALTHY General Exam Limitations: no limitations General appearance: alert, in no apparent distress Respiratory exam: Present: normal lung sounds bilaterally. Absent: respiratory distress, wheezes, rales, rhonchi, stridor Cardiovascular Exam: Present: regular rate, normal rhythm, normal heart sounds. Absent: systolic murmur, diastolic murmur, rubs, gallop, clicks GI/Abdominal exam: Present: soft, normal bowel sounds. Absent: distended, t enderness, guarding, rebound, rigid Neurological exam: Present: alert, oriented X3, CN II-XII intact Skin exam: Present: warm, dry, intact, normal color. Absent: rash Course Vital Signs 03/15/24 03/15/24 12:03 14:07 Temperature 98.1 F 98.0 F Pulse Rate 74 63 Respiratory 18 18 Rate Blood Pressure 131/72 118/75 O2 Sat by Pulse 100 99 Oximetry Medical Decision Making - Medical Decision Making Was pt. sent in by a medical professional or institution (, PA, TRUST VAULT CUSTODIAN, urgent care, hospital, or group home...) When possible be specific @ -No Did you speak to anyone other than the patient for history (EMS, parent, family, police, friend...)? What history was obtained from this source @ -No Did you review nursing and triage notes (agree or disagree)? Why? @ -I reviewed and agree with nursing and triage notes Were old charts reviewed (outside hosp., previous admission, EMS record, old EKG, old radiological studies, urgent care reports/EKG's, group home records)? Report findings @ -No old charts were reviewed Differential Diagnosis (chest pain, altered mental status, abdominal pain women, abdominal pain men, vaginal bleeding, weakness, fever, dyspnea, syncope, headache, dizziness, GI bleed, back pain, seizure, CVA, palpatations, mental health, musculoskeletal)? @ -Differential Vaginal Bleeding:Spontaneous , threatened , molar , ectopic , bloody show, incompetent cervix, ab ruptioplacenta, placenta previa, uterine rupture, dysfunctional uterine bleeding, hemorrhage, uterine fibroids, this is not meant to be an all-inclusive list. EKG interpreted by me (3pts min.). @ -None done X-rays interpreted by me (1pt min.). @ -None done CT interpreted by me (1pt min.). @ -None done U/S interpreted by me (1pt. min.). @ -Transvaginal ultrasound showing no evidence of acute process. Fibroid uterus. What testing was considered but not performed or refused? (CT, X-rays, U/S, labs)? Why? @ -None What meds were considered but not given or refused? Why? @ -None Did you discuss the management of the patient with other professionals (professionals i.e. , PA, TRUST VAULT CUSTODIAN, lab, RT, psych nurse, social media designer, supervisor in circuit testing, teacher, combat systems officer, outsole caser)? Give summary @ -No Was smoking cessation discussed for >3mins.? @ -No Was critical care preformed (if so, how long)? @ -No Were there social determinants of health that impacted care today? How? (Homelessness, low income, unemployed, alcoholism, drug addiction, transportation, low edu. Level, literacy, decrease access to med. care, nursing home, rehab)? @ -No Was there de-escalation of care discussed even if they declined (Discuss DNR or withdrawal of care, Hospice)? DNR status @ -No What co-morbidities impacted this encounter? (DM, HTN, Smoking, COPD, CAD, Cancer, CVA, ARF, Chemo, Hep., AIDS, mental health diagnosis, sleep apnea, morbid obesity)? @ -None Was patient admitted / discharged? Hospital course, mention meds given and route, prescriptions, significant lab abnormalities, going to OR and other p ertinent info. @ -Discharged. 43-year-old female presented to ER with a chief complaint of vaginal bleeding. History and physical exam completed. Vitals within normal limits. Patient in no signs of acute distress nontoxic-appearing. Exam benign. Pelvic exam refused by patient. Laboratory studies obtained showing a stable hemoglobin of 13.7. Serum hCG less than 2.4. Urinalysis is hemorrhagic with moderate blood this is likely contaminated from vaginal bleeding. Ultrasound showing a fibroid uterus which is likely source of vaginal bleeding. I instructed patient to follow-up with ENVIRONMENTAL ISSUES INSTRUCTOR, Dr. Currie, as soon as possible for further evaluation and treatment. Patient is stable for discharge upon reevaluation. Results discussed with patient, all questions answered. Strict return parameters discussed. Patient discharged in stable condition with follow-up to PCP. Patient verbally expressed understanding and agreement with care plan. Case discussed with ED attending, . Undiagnosed new problem with uncertain prognosis? @ -No Drug Therapy requiring intensive monitoring for toxicity (Heparin, Nitro, Insulin, Cardizem)? @ -No Were any procedures done? @ -No Diagnosis/symptom? @ -Fibroid uterus/dysfunctional uterine bleeding Acute, or Chronic, or Acute on Chronic? @ -Acute Uncomplicated (without systemic symptoms) or Complicated (systemic symptoms)? @ -Uncomplicated Side effects of treatment? @ -No Exacerbation, Progression, or Severe Exacerbation? @ -No Poses a threat to life or bodily function? How? (Chest pain, [place], PR, pneumonia, PE, COPD, DKA, ARF, appy, cholecystitis, CVA, Diverticulitis, Homicidal, Suicidal, threat to staff... and all critical care pts) @ -No - Lab Data Result diagrams: 03/15/24 12:32 03/15/24 12:32 Lab Results 03/15/24 03/15/24 03/15/24 Range/Units 12:32 12:32 12:48 WBC 7.4 (3.8-10.6) k/uL RBC 4.76 (3.80-5.40) m/uL Hgb 13.7 (11.4-16.0) gm/dL Hct 41.6 (34.0-46.0) % MCV 87.4 (80.0-100.0) fL MCH 28.8 (25.0-35.0) pg MCHC 33.0 (31.0-37.0) g/dL RDW 13.2 (11.5-15.5) % Plt Count 237 (150-450) k/uL MPV 8.5 Neutrophils % 69 % Lymphocytes % 23 % Monocytes % 5 % Eosinophils % 1 % Basophils % 1 % Neutrophils # 5.1 (1.3-7.7) k/uL Lymphocytes # 1.7 (1.0-4.8) k/uL Monocytes # 0.4 (0-1.0) k/uL Eosinophils # 0.1 (0-0.7) k/uL Basophils # 0.1 (0-0.2) k/uL Sodium 137 (137-145) mmol/L Potassium 4.6 (3.5-5.1) mmol/L Chloride 100 (98-107) mmol/L Carbon Dioxide 29 (22-30) mmol/L Anion Gap 8 mmol/L BUN 16 (7-17) mg/dL Creatinine 0.71 (0.52-1.04) mg/dL Est GFR (CKD-EPI)AfAm >90 (>60 ml/min/1.73 sqM) Est GFR (CKD-EPI)NonAf >90 (>60 ml/min/1.73 sqM) Glucose 102 H (74-99) mg/dL Calcium 9.5 (8.4-10.2) mg/dL Total Bilirubin 1.1 (0.2-1.3) mg/dL AST 42 H (14-36) U/L ALT 21 (4-34) U/L Alkaline Phosphatase 57 (38-126) U/L Total Protein 7.5 (6.3-8.2) g/dL Albumin 4.6 (3.5-5.0) g/dL HCG, Quant <2.4 mIU/mL Urine Color Urine Appearance (Clear) Urine pH (5.0-8.0) Ur Specific [place] (1.001-1.035) Urine Protein (Negative) Urine Glucose (UA) (Negative) Urine Ketones (Negative) Urine Blood (Negative) Urine Nitrite (Negative) Urine Bilirubin (Negative) Urine Urobilinogen (<2.0) mg/dL Ur Leukocyte Esterase (Negative) Urine RBC (0-5) /hpf Urine WBC (0-5) /hpf Blood Type O Negative Blood Type Recheck O Neg Bld Type Recheck Status No Antibody Screen NEGATIVE Spec Expiration Date 03/18/2024234703/15/24 Range/Units 12:53 WBC (3.8-10.6) k/uL RBC (3.80-5.40) m/uL Hgb (11.4-16.0) gm/dL Hct (34.0-46.0) % MCV (80.0-100.0) fL MCH (25.0-35.0) pg MCHC (31.0-37.0) g/dL RDW (11.5-15.5) % Plt Count (150-450) k/uL MPV Neutrophils % % Lymphocytes % % Monocytes % % Eosinophils % % Basophils % % Neutrophils # (1.3-7.7) k/uL Lymphocytes # (1.0-4.8) k/uL Monocytes # (0-1.0) k/uL Eosinophils # (0-0.7) k/uL Basophils # (0-0.2) k/uL Sodium (137-145) mmol/L Potassium (3.5-5.1) mmol/L Chloride (98-107) mmol/L Carbon Dioxide (22-30) mmol/L Anion Gap mmol/L BUN (7-17) mg/dL Creatinine (0.52-1.04) mg/dL Est GFR (CKD-EPI)AfAm (>60 ml/min/1.73 sqM) Est GFR (CKD-EPI)NonAf (>60 ml/min/1.73 sqM) Glucose (74-99) mg/dL Calcium (8.4-10.2) mg/dL Total Bilirubin (0.2-1.3) mg/dL AST (14-36) U/L ALT (4-34) U/L Alkaline Phosphatase (38-126) U/L Total Protein (6.3-8.2) g/dL Albumin (3.5-5.0) g/dL HCG, Quant mIU/mL Urine Color Colorless Urine Appearance Clear (Clear) Urine pH 7.0 (5.0-8.0) Ur Specific [place] 1.003 (1.001-1.035) Urine Protein Negative (Negative) Urine Glucose (UA) Negative (Negative) Urine Ketones Negative (Negative) Urine Blood Moderate H (Negative) Urine Nitrite Negative (Negative) Urine Bilirubin Negative (Negative) Urine Urobilinogen <2.0 (<2.0) mg/dL Ur Leukocyte Esterase Negative (Negative) Urine RBC 2 (0-5) /hpf Urine WBC <1 (0-5) /hpf Blood Type Blood Type Recheck Bld Type Recheck Status Antibody Screen Spec Expiration Date - Radiology Data Radiology results: report reviewed, image reviewed Disposition Clinical Impression: Fibroid uterus, Dysfunctional uterine bleeding Disposition: HOME SELF-CARE Condition: Stable Instructions (If sedation given, give patient instructions): Abnormal (Dysfunctional) Uterine Bleeding (ED) Additional Instructions: Follow-up with Dr. Currie. Return to the ER for any new or worsening symptoms. Is patient prescribed a controlled substance at d/c from ED?: No Referrals: None,Stated [Primary Care Provider] - 1-2 days Shon Currie MD [STAFF PHYSICIAN] - 1-2 days Time of Disposition: 14:03
[2024-03-15 12:48] LABS: Basophils # (A) 0.1 k/uL (0-0.2); Basophils % (A) 1 %; Eosinophils # (A) 0.1 k/uL (0-0.7); Eosinophils % (A) 1 %; HCT 41.6 % (34.0-46.0); HGB 13.7 gm/dL (11.4-16.0); Lymphocytes # (A) 1.7 k/uL (1.0-4.8); Lymphocytes % (A) 23 %; MCH 28.8 pg (25.0-35.0); MCV 87.4 fL (80.0-100.0); Mean Platelet Volume 8.5; Monocytes # (A) 0.4 k/uL (0-1.0); Monocytes % (A) 5 %; Neutrophils # (A) 5.1 k/uL (1.3-7.7); Neutrophils % (A) 69 %; Platelet Count 237 k/uL (150-450); RBC 4.76 m/uL (3.80-5.40); RDW 13.2 % (11.5-15.5); WBC 7.4 k/uL (3.8-10.6)
[2024-03-15 13:02] LABS: ALT 21 U/L (4-34); African American GFR (CKD) >90 (>60 ml/min/1.73 sqM); Anion Gap 8 mmol/L; Blood Urea Nitrogen 16 mg/dL (7-17); Calcium 9.5 mg/dL (8.4-10.2); Carbon Dioxide 29 mmol/L (22-30); Chloride 100 mmol/L (98-107); Glucose 102 mg/dL (74-99); Non-African American GFR(CKD) >90 (>60 ml/min/1.73 sqM); Sodium 137 mmol/L (137-145)
[2024-03-15 13:10] LABS: Appearance,Urine Clear (Clear); Bilirubin,Urine Negative (Negative); Blood,Urine Moderate (Negative); Color,Urine Colorless; Glucose,Urine (UA) Negative (Negative); Ketones,Urine Negative (Negative); Leukocyte Esterase,Urine Negative (Negative); Nitrite,Urine Negative (Negative); Protein,Urine Negative (Negative); RBC,Urine 2 /hpf (0-5); Specific Gravity,Urine 1.003 (1.001-1.035); Urobilinogen,Urine <2.0 mg/dL (<2.0); WBC,Urine <1 /hpf (0-5)
[2024-03-15 13:13] LABS: AST 42 U/L (14-36); Albumin 4.6 g/dL (3.5-5.0); Alkaline Phosphatase 57 U/L (38-126); Potassium 4.6 mmol/L (3.5-5.1); Total Bilirubin 1.1 mg/dL (0.2-1.3); Total Protein 7.5 g/dL (6.3-8.2)
[2024-03-15 13:17] LABS: HCG,Quantitative Serum <2.4 mIU/mL
--- NOTE | 2024-03-15 13:38 | US ---
EXAMINATION TYPE: US transvaginal DATE OF EXAM: 03/15/2024 COMPARISON: NONE CLINICAL INDICATION: Female, 43 years old with history of vaginal bleeding/ RLQ abd pain; LMP about 1 week ago, normal menses, clotting x 2 days with right sided pelvic pain TECHNIQUE: Transvaginal (TV). Doppler imaging: Not performed. FINDINGS: Date of LMP: 03/06/2024 EXAM MEASUREMENTS: Uterus: 8.5 x 4.1 x 5.5 cm Endometrial Stripe: 0.4 cm Right Ovary: 2.9 x 2.2 x 3.1 cm Left Ovary: 1.9 x 2.0 x 1.9 cm 1. Uterus: Anteverted Multiple heterogenous areas, largest left uterine fundus = 3.4 x 2.3 x 3.4 c m 2. Endometrium: ? Fluid within 3. Right Ovary: wnl 4. Left Ovary: wnl 5. Bilateral Adnexa: wnl 6. Posterior cul-de-sac: wnl IMPRESSION: 1. No evidence for acute process. 2. Fibroid uterus. [facility], , 03/15/2024 1:35 PM
[2024-03-15 14:13] VITALS: BP 118/75; PULSE 63; TEMP 98
== END 2024-03-15 14:14 | disposition home or self-care (01) ==
LOC: EC 11:57
DX: D25.9 Leiomyoma of uterus, unspecified (principal); N93.8 Other specified abnormal uterine and vaginal bleeding; R10.31 Right lower quadrant pain; Z88.0 Allergy status to penicillin
CPT/HCPCS: 36415; 76830; 80053; 81001; 84702; 85025; 86850; 86900; 86901; 99284